=== PATIENT | female | born 1935 | race African-American/Black ===

== ENCOUNTER 2019-03-05 14:44 | Emergency (ER) | payer OTHER ==
[~2019-03-05] VITALS: Ht 157.5 cm; Wt 57.7 kg
[2019-03-05 14:48] VITALS: Ht 157.5 cm; Wt 57.7 kg
--- NOTE | 2019-03-05 15:29 | ERD ---
ER Documentation Chief Complaint Chief Complaint chest pain since am sent by dr Steel office HPI This is a 83-year-old woman with a history of metastatic breast carcinoma status post left mastectomy, and IV chemotherapy 4 days ago, brought in by family members for complaints of generalized weakness, dehydration, full body aches, an d chest discomfort. The chest pressure began 4 days ago and has been constant, nonradiating, nonexertional, she states she feels weak for the last 2 days but denies fevers or chills, no vomiting, no blurry vision. ROS All systems reviewed and are negative except as per history of present illness. Medications Home Meds Active Scripts Oxycodone HCl/Acetaminophen (Percocet 5-325 mg Tablet) 1 Each Tablet, 1 EACH PO BID PRN for PAIN LEVEL 6-10, #12 TAB Prov:NICK JIMÉNEZ MD 03/05/19 Reported Medications Mu-Vits-Min Th/Lycopene/Lutein (CENTRUM SILVER TABLET) 1 Each Tablet, 1 EACH PO DAILY, TAB 03/05/19 Furosemide* (Furosemide*) Unknown Strength Tablet, 0.5 TAB PO DAILY, TAB 03/05/19 Felodipine* (Felodipine*) 5 Mg Tab.sr.24h, 5 MG PO DAILY, TAB.SA 03/05/19 Apixaban* (Eliquis*) 5 Mg Tablet, 5 MG PO BID, TAB 03/05/19 Allergies Allergies: Coded Allergies: Sulfa (Sulfonamide Antibiotics) (Unverified Allergy, Unknown, 03/05/19) PMhx/Soc Alcohol intoxication metastatic breast carcinoma status post chemotherapy and left breast mastectomy FmHx Family History: No diabetes Physical Exam Vitals Vital Signs Date Temp Pulse Resp B/P (MAP) Pulse Ox O2 O2 Flow FiO2 Time Delivery Rate 03/05/19 98.5 78 16 143/71 100 Room Air 16:20 (95) 03/05/19 98.8 99 18 137/63 98 14:48 (87) Physical Exam Const: Emaciated elderly woman, mild discomfort, afebrile HEENT: Dry mucous membranes, pink conjunctive a Resp: Clear to auscultation bilaterally Cardio: Regular rate and rhythm, no murmurs Abd: Soft, non tender, non distended. Normal bowel sounds Skin: No petechiae or rashes, no skin ulcers abrasions, hematomas Back: No midline or flank tenderness Ext: No cyanosis, or edema, calves symmetrical Neur: Awake and alert x3, no focal deficits or facial asymmetry Psych: Normal Mood and Affect Result Diagram: 03/05/19 1554 03/05/19 1554 Results 24 hrs Laboratory Tests Test 03/05/19 15:54 03/05/19 16:11 White Blood Count 4.4 10^3/ul Red Blood Count 2.66 10^6/ul Hemoglobin 10.2 g/dl Hematocrit 30.2 % Mean Corpuscular Volume 113.5 fl Mean Corpuscular Hemoglobin 38.3 pg Mean Corpuscular Hemoglobin Concent 33.8 g/dl Red Cell Distribution Width 13.2 % Platelet Count 95 10^3/UL Mean Platelet Volume 11.5 fl Immature Granulocytes % 0.200 % Neutrophils % % Segmented Neutrophils % (Manual) 84 % Band Neutrophils % (Manual) 3 % Lymphocytes % % Lymphocytes % (Manual) 9 % Reactive Lymphocytes % (Manual) 2 % Monocytes % % Monocytes % (Manual) 1 % Eosinophils % % Eosinophils % (Manual) 1 % Basophils % % Nucleated Red Blood Cells % 0.0 /100WBC Immature Granulocytes # 0.010 10^3/ul Neutrophils # 10^3/ul Neutrophils # (Manual) 3.7 10^3/ul Band Neutrophils # 0.1 10^3/ul Lymphocytes (Manual) 0.3 10^3/ul Lymphocytes # 10^3/ul Reactive Lymphocytes # 0.0 10^3/ul Monocytes # 10^3/ul Monocytes # (Manual) 0.0 10^3/ul Eosinophils # 10^3/ul Basophils # 10^3/ul Nucleated Red Blood Cells # 10^3/ul Platelet Estimate DECREASED Anisocytosis 2+ Macrocytosis 2+ Prothrombin Time 13.7 Sec Prothrombin Time Ratio 1.1 INR International Normalized Ratio 1.04 Activated Partial Thromboplast Time 30.1 Sec Sodium Level 142 mmol/L Potassium Level 3.0 mmol/L Chloride Level 99 mmol/L Carbon Dioxide Level 37 mmol/L Anion Gap 6 Blood Urea Nitrogen 31 mg/dl Creatinine 1.28 mg/dl Est Glomerular Filtrat Rate mL/min mL/min Glucose Level 99 mg/dl Calcium Level 9.0 mg/dl Total Bilirubin 0.8 mg/dl Direct Bilirubin 0.00 mg/dl Indirect Bilirubin 0.8 mg/dl Aspartate Amino Transf (AST/SGOT) 39 IU/L Alanine Aminotransferase (ALT/SGPT) 21 IU/L Alkaline Phosphatase 84 IU/L Troponin I < 0.012 ng/ml Total Protein 6.9 g/dl Albumin 3.6 g/dl Globulin 3.30 g/dl Albumin/Globulin Ratio 1.09 Lipase 26 U/L Urine Color YELLOW Urine Clarity CLEAR Urine pH 7.0 Urine Specific [place] 1.011 Urine Ketones NEGATIVE mg/dL Urine Nitrite NEGATIVE mg/dL Urine Bilirubin NEGATIVE mg/dL Urine Urobilinogen NEGATIVE mg/dL Urine Leukocyte Esterase NEGATIVE [place]/ul Urine Microscopic RBC 2 /HPF Urine Microscopic WBC 3 /HPF Urine Hemoglobin 1+ mg/dL Urine Glucose NEGATIVE mg/dL Urine Total Protein NEGATIVE mg/dl Current Medications Medications Dose Sig/Jovani Start Time Status Last (Trade) Ordered Route PRN Stop Time Admin Dose Reason Admin Lactated 1,000 ml @ Q1H STAT 03/05/19 DC 03/05/19 Ringer's 1,000 mls/hr IV 15:46 03/05/19 16:14 16:45 Morphine 4 mg ONCE STAT 03/05/19 DC Sulfate IV 15:46 03/05/19 (morphine) 15:47 Ondansetron 4 mg ONCE STAT 03/05/19 DC HCl (Zofran IV 15:46 03/05/19 Inj) 15:47 650 mg ONCE ONCE 03/05/19 DC Acetaminophen PO 16:30 03/05/19 (Tylenol 16:31 Tab) Oxycodone/ 1 tab ONCE ONCE 03/05/19 DC 03/05/19 Acetaminophen PO 16:38 03/05/19 16:42 (Percocet 16:39 (5/ 325)) Procedures/MDM IV line was established patient was placed on hospital monitor rhythm strip revealed a sinus rhythm at about 90 bpm with upright P and T waves. Patient was afebrile EKG performed, read by me revealed a normal sinus rhythm at 90 bpm, normal axis, right ventricular conduction delay QRS duration 104 ms, no concerning ST elevations or depressions noted I administered 1 L LR IV x1 for dehydration, Percocet 1 tablet p.o., Zofran 4 mg IV. CBC revealed mild pancytopenia consistent with her disease process, electrolytes revealed dehydration with a BUN/creatinine of 31/1.3, liver function tests unremarkable, troponin negative, urinalysis negative for infection. I spoke to her oncologist Dr. Kaur guarding the patient's presentation and symptomatology, she knows her well and agreed to follow-up with her as an outpatient but at this time we have no indication for any further intervention, imaging, or admission. Patient felt much better after above medications and stated her pain resolved. Differential diagnoses considered, included but not limited to acute coronary syndrome, pulmonary embolism, aortic dissection, abdominal aortic aneurysm, sepsis, stroke, meningitis, encephalitis, pneumonia, appendicitis, cholecystitis, bowel obstruction, pyelonephritis, nephrolithiasis, cystitis, as well as metabolic, hematologic, and electrolyte abnormalities. As well as abscess, cellulitis, fractures, and dislocations. Patient feels much better at this time, and vital signs are normal, symptoms have improved. I did give strict instructions to return to the ED if symptoms continue or worsen, patient will otherwise follow-up with primary care physician. Patient understood instructions and agreed to plan. Disclaimer: Inadvertent spelling and grammatical errors are likely due to EHR/dictation software use and do not reflect on the overall quality of patient care. Also, please note that the electronic time recorded on this note does not necessarily reflect the actual time of the patient encounter. Departure Diagnosis: Primary Impression: Chest pain Chest pain type: unspecified Qualified Codes: R07.9 - Chest pain, unspecified Additional Impressions: Metastatic breast carcinoma Generalized weakness Acute dehydration Condition: Good NICK JIMÉNEZ MD Mar 05, 2019 15:29
[2019-03-05] MEDS ORDERED: LACTATED RINGER'S 1,000 ML IV STA (15:46)
[2019-03-05] MEDS ORDERED: ONDANSETRON 4 MG INJ IV STA (15:46)
[2019-03-05] MEDS ORDERED: morphine 4 MG/ML VIAL IV STA (15:46)
[2019-03-05] MEDS ORDERED: APIX5TAB PO (16:10)
[2019-03-05] MEDS ORDERED: FELO5TAB35 PO (16:10)
[2019-03-05] MEDS ORDERED: FURO40TA4 PO (16:11)
[2019-03-05] MEDS ORDERED: MULT-860 PO (16:12)
[2019-03-05] MEDS ORDERED: ACETAMINOPHEN 325 MG TAB PO ONE (16:30)
[2019-03-05] MEDS ORDERED: OXYCODONE/ACETAMINOPHEN (5/325) TAB PO ONE (16:38)
[2019-03-05] MEDS ORDERED: OXYC-279 PO (17:07)
[2019-03-05] MEDS ORDERED: POTASSIUM CHLORIDE (SR) 20 MEQ TAB PO STA (17:13)
[2019-03-05 17:55] VITALS: BP 148/70; PULSE 74; RESP 23
== END 2019-03-05 18:03 | disposition home or self-care (01) ==
LOC: E/R 14:44
DX: R07.9 Chest pain, unspecified (principal); C79.81 Secondary malignant neoplasm of breast; C80.1 Malignant (primary) neoplasm, unspecified; E86.0 Dehydration; R10.9 Unspecified abdominal pain; Z79.01 Long term (current) use of anticoagulants
CPT/HCPCS: 36415; 71045; 80053; 81001; 83690; 84484; 85025; 85610; 85730; 87086; 99284; J7120